=== PATIENT | male | born 1950 ===

== ENCOUNTER 2018-04-24 10:22 | Day surgery (SDC) | payer OTHER ==
[2018-04-24] MEDS ORDERED: LR 1,000 ML IV ONE (10:32)
[2018-04-24] MEDS ORDERED: LIDOCAINE 1% 2 ML INJ ID PRN (10:32)
[2018-04-24] MEDS ORDERED: EPINEPHrine 1 MG/ML INJ ONE ×2 (11:12→11:16)
[2018-04-24] MEDS ORDERED: METHYLENE BLUE 0.5% 50 MG/10 ML AMP ONE ×2 (11:12→11:16)
[2018-04-24] MEDS ORDERED: ceFAZolin 2 GM/DEXTROSE 100 ML IV ONE (11:23)
--- NOTE | 2018-04-24 11:24 | PDHPUP ---
History & Physical Update H&P update statement: This history and physical update is based on an assessment of the patient which was completed after admission or registration (within 24 hours), but prior to the surgery/procedure. H&P update: H&P reviewed & patient examined, no change in patient's condition since H&P completed
[2018-04-24] MEDS ORDERED: MIDAZOLAM 2 MG/2 ML VIAL ONE (11:32)
[2018-04-24] MEDS ORDERED: fentaNYL 100 MCG/2 ML INJ ONE ×2 (11:33→12:56)
[2018-04-24] MEDS ORDERED: PROPOFOL 200 MG/20 ML VIAL ONE ×2 (11:33→12:04)
[2018-04-24] MEDS ORDERED: METOCLOPRAMIDE 10 MG/2 ML VIAL ONE (11:57)
[2018-04-24] MEDS ORDERED: ceFAZolin 1 GM VIAL ONE ×2 (11:57)
[2018-04-24] MEDS ORDERED: ONDANSETRON 4 MG/2 ML VIAL ONE (11:57)
[2018-04-24] MEDS ORDERED: ROCURONIUM 50 MG/5 ML VIAL ONE (11:57)
--- NOTE | 2018-04-24 12:11 | PDANEPAE ---
ANE Past Medical History - Cardiovascular History Hx Hypertension: No Hx Arrhythmias: No Hx Chest Pain: No Hx Coronary Artery / Peripheral Vascular Disease: No Hx CHF / Valvular Disease: No Hx Palpitations: No - Pulmonary History Hx COPD: No Hx Asthma/Reactive Airway Disease: No Hx Recent Upper Respiratory Infection: No Hx Oxygen in Use at Home: No Hx Sleep Apnea: Yes Sleep Apnea Screening Result - Last Documented: Positive Pulmonary History Comment: mild KARTHIK does not use CPAP, uses mouth guard - Neurologic History Hx Cerebrovascular Accident: No Hx Seizures: No Hx Dementia: No - Endocrine History Hx Diabetes: No - Renal History Hx Renal Disorders: Yes Renal History Comment: stage 3 kidney disease - Liver History Hx Hepatic Disorders: No - Neurological & Psychiatric Hx Hx Neurological and Psychiatric Disorders: No - Cancer History Hx Cancer: No - Congenital Disorder History Hx Congenital Disorders: No - GI History Hx Gastrointestinal Disorders: Yes Gastrointestinal History Comment: reflux - Other Health History Other Health History: neck has limited ROM especially looking up - Chronic Pain History Chronic Pain: Yes (neck and back) - Surgical History Prior Surgeries: spinal surgery with hardware. neck surgery. RICHARD ANE Review of Systems Review of Systems: - Exercise capacity METS (RN): 4 METS ANE Patient History - Allergies Allergies/Adverse Reactions: Iodinated Contrast- Oral and IV Dye Allergy (Verified 04/21/18 11:04) lactose Allergy (Verified 04/21/18 11:04) ALL METALS Allergy (Uncoded 04/21/18 11:04) - Home Medications Home Medications: Allopurinol [Allopurinol 300 MG (RX)] 300 mg PO DAILY 04/21/18 [Last Taken Unknown] Amoxicillin Trihydrate [Amoxicillin] 2,000 mg PO AD 04/21/18 [Last Taken Unknown ] Aspirin [Aspirin 81mg (*)] 81 mg PO DAILY 04/21/18 [Last Taken Unknown] Atorvastatin Calcium [Lipitor 10 mg (*)] 10 mg PO DAILY 04/21/18 [Last Taken Unknown] Cholecalciferol Vit D3 [Vitamin D3 (*)] 1,000 units PO DAILY 04/21/18 [Last Taken 04/12/18] Colchicine [Colchicine (*)] 0.6 mg PO DAILY PRN 04/21/18 [Last Taken Unknown] DULoxetine [Cymbalta 60 MG (*)] 60 mg PO BID 04/21/18 [Last Taken 04/23/18] Fluconazole 50 mg PO DAILY PRN 04/21/18 [Last Taken 12/24/17] Fluticasone Hfa 110 Mcg [Flovent 110 MCG Hfa MDI (*)] 1 puffs IH BID PRN [Last Taken 12/24/17] Herbals/Supplements -Info Only 1 ea PO DAILY 04/21/18 [Last Taken 04/12/18] Omeprazole 20 mg PO DAILY 04/21/18 [Last Taken 04/24/18 07:30] oxyCODONE/APAP 5/325 [Percocet 5/325 (*)] 1 tab PO Q6HRS PRN 04/21/18 [Last Taken Unknown] predniSONE [Pao] 2 mg PO DAILY PRN 04/21/18 [Last Taken 12/24/17] - NPO status NPO Since - Liquids (Date): 04/24/18 NPO Since - Liquids (Time): 08:30 NPO Since - Solids (Date): 04/23/18 NPO Since - Solids (Time): 18:00 - Smoking Hx Smoking Status: Former smoker - Family Anes Hx Family Hx Anesthesia Complications: none ANE Labs/Vital Signs - Vital Signs Blood Pressure: 119/80 Heart Rate: 59 Respiratory Rate: 16 O2 Sat (%): 94 Height: 177.8 cm Weight: 86.183 kg ANE Physical Exam - Airway Neck exam: spinal fusion Mallampati Score: Class 2 - ASA Status ASA Status: II ANE Anesthesia Plan Anesthesia Plan: general endotracheal anesthesia Specialized Airway: video laryngoscope Urgent/Emergent Case: Madeleine chambers completed preop but documented later for safe timely pt care
[2018-04-24] MEDS ORDERED: DEXAMETHASONE 4 MG/ML VIAL ONE ×3 (12:22)
[2018-04-24] MEDS ORDERED: SUGAMMADEX SODIUM 200 MG/2 ML VIAL IVP ONE (12:23)
[2018-04-24] MEDS ORDERED: LR 500 ML IV PRN (12:43)
[2018-04-24] MEDS ORDERED: PROMETHAZINE HCL 25 MG/ML INJ IVP PRN (12:43)
[2018-04-24] MEDS ORDERED: NALOXONE HCL 0.4 MG/ML INJ IVP PRN (12:43)
--- NOTE | 2018-04-24 12:44 | POSTANESTH ---
Post Anesthetic Evaluation Cardiovascular Status: Normal, Stable Respiratory Status: Normal, Stable Level of Consciousness/Mental Status: Can Participate in Eval Pain Control: Adequate, Prn Tx Ordered Nausea/Vomiting Control: Adequate, Prn Tx Ordered Complications Possibly Related to Anesthesia: None Noted
[2018-04-24] MEDS ORDERED: HYDROCOD/APAP 7.5/325 IN 15ML UDCUP PO PRN (12:56)
[2018-04-24] MEDS: fentaNYL 100 MCG/2 ML INJ IVP PRN ×2 (12:57→13:08)
[2018-04-24 14:49] VITALS: BP 120/75
--- NOTE | 2018-05-10 21:51 | GOP ---
[f rep st] OPERATIVE REPORT DATE OF OPERATION: SURGEON: Ramiro Solorio MD ANESTHESIA: General. PREOPERATIVE DIAGNOSIS: Zenker diverticulum. POSTOPERATIVE DIAGNOSIS: Zenker diverticulum. PROCEDURE PERFORMED: Esophagoscopy. FINDINGS: Moderately limited range of motion to neck limiting the view of distally placed Zenker diverticulum. Diverticulum found on esophagoscopy. SPECIMENS: None. ESTIMATED BLOOD LOSS: Minimal. INDICATIONS: Patient was seen in the outpatient clinic and was determined to be an appropriate candidate to undergo endoscopic Zenker diverticulotomy. Patient was known to have prior ACDF with associated concern for cervical spine range of motion and fragility. The risks, benefits, and alternatives to the procedure were explained at length with the patient, who stated he understood and wished to go forward with the procedure. DESCRIPTION OF PROCEDURE: Patient was brought to the operating room by Anesthesiology and placed on the operating table. Once appropriate level of anesthesia was achieved, the patient was prepped and draped in the usual fashion. The patient was placed in sniffing position, and the neck was extended to the extent the patient had been comfortable preoperatively. A tooth guard was placed on the maxillary teeth. A Weerda laryngoscope was then passed through the oral cavity, oropharynx, hypopharynx, and through the esophageal inlet into the esophagus. It was able to be passed reasonably well into the proximal esophagus, but in looking for the diverticulum, there was a limitation in terms of the ability of the scope into the oral cavity at the angle it was going into the esophagus. The diverticulum was not visualized. At this point, the Weerda laryngoscope was withdrawn. A rigid esophagoscope was then prepared and passed through the oral cavity on through to the esophageal inlet. As it was run distally, the diverticulum was visualized. This length was measured, and the scope was withdrawn. With the Weerda laryngoscope again placed transorally into the esophagus, the diverticulum was unable to be reached for appropriate spread of the blades of the scope. At this point, it was determined to abandon the procedure diverticulotomy. The scope was removed from the oral cavity. The mucosa was inspected on the way out with no visual trauma. With the scope withdrawn, the patient was turned over to Anesthesia, and the maxillary tooth guard was removed. The patient tolerated the procedure well and was extubated in the operating room prior to being transferred in good condition to the postanesthesia care unit. COMPLICATIONS: None. /[id number]/MODL MTDD
== END 2018-04-24 14:47 | disposition home or self-care (01) ==
LOC: F3E 10:22 → UNDOADMOB 10:22 → FSGY 10:22 → EDSTATUS 12:00 → FSGY 14:47 → UNDODISOB 14:47
PROVIDERS: ATTEND Otolaryngology
PROC: 0CJS8ZZ Inspection of Larynx, Via Natural or Artificial Opening Endoscopic (ICD-10-PCS; principal; 2018-04-24 12:00)
DX: K22.5 Diverticulum of esophagus, acquired (principal); R49.0 Dysphonia; N18.3 Chronic kidney disease, stage 3 (moderate); K21.9 Gastro-esophageal reflux disease without esophagitis; G47.33 Obstructive sleep apnea (adult) (pediatric); Z87.891 Personal history of nicotine dependence; Z96.649 Presence of unspecified artificial hip joint
CPT/HCPCS: J0171; J0690; J1100; J2250; J2405; J2704; J2765; J3010; Q9968